=== PATIENT | female | born 1935 | race Hispanic/Latino ===

== ENCOUNTER → 2016-12-03 | Outpatient (CLI) | payer OTHER ==
[~2016-12-03] VITALS: Ht 149.9 cm; Wt 51.0 kg
[~2016-12-03] MED LIST: AMLODIPINE BESYL5 MG PO; Ascorbic Acid,Ester- PO; BAYER CHEWABLE81 MG PO; CIPRO500 MG PO; CITRACAL PLUS1 EAC1 PO; Caltrate 600/200 PO; Colace PO; Dulcolax PO; Dulcolax PR; Feosol PO; Folvite PO; HYDROCODON-ACE1 EAC7 PO; LEVOTHYROXINE50 MCG PO; LISINOPRIL-HCT1 EAC3 PO; LOVASTATIN40 MG PO; Levothroid,Synthroid PO; OMEPRAZOLE20 MG PO; RANITIDINE HCL150 MG PO; REFRESH EYE DR1 EACH BOTH EYES; TORADOL10 MG PO; TYLENOL REGULA325 MG PO; ULTRAM50 MG PO; Vicodin,Norco 5/325 PO; XALATAN2.5 ML RIGHT EYE
[2016-12-03 09:51] VITALS: BP 134/60
== END | disposition home or self-care (01) ==
LOC: IVINF 09:30
DX: M81.0 Age-related osteoporosis without current pathological fracture (principal)
CPT/HCPCS: 96365; J3489